=== PATIENT | female | born 1980 | race Caucasian/White ===

== ENCOUNTER 2022-05-04 09:12 | Day surgery (SDC) | payer BC ==
[~2022-05-04 09:12] MED LIST: Lactated Ringers 1,000 ML IV SCH
[2022-05-04] MEDS ORDERED: HYDROmorphone 1 MG/ML Syringe IVPUSH PRN (09:36)
[2022-05-04] MEDS ORDERED: Morphine 2 MG/ML SYRINGE IVPUSH PRN (09:36)
[2022-05-04] MEDS ORDERED: Ondansetron 4 MG/2 ML SDV IVPUSH PRN (09:36)
[2022-05-04] MEDS ORDERED: Naloxone 0.4 MG/ML SDV IVPUSH PRN (09:36)
[2022-05-04] MEDS ORDERED: fentaNYL 50 MCG/ML SDV IVPUSH PRN (09:36)
[2022-05-04] MEDS ORDERED: Albuterol 0.083% 2.5 MG/3 ML Neb Soln NEB PRN (09:36)
[2022-05-04] MEDS ORDERED: Metoclopramide 10 MG/2 ML SDV IVPUSH PRN (09:36)
[2022-05-04] MEDS ORDERED: Ondansetron 4 MG/2 ML SDV ONE (10:08)
[2022-05-04] MEDS ORDERED: Dexamethasone 4 MG/ML 5 ML MDV ONE (10:08)
[2022-05-04] MEDS ORDERED: Propofol 200 MG/20 ML SDV ONE (10:08)
[2022-05-04] MEDS ORDERED: Lidocaine 2% 5 ML SDV ONE (10:08)
[2022-05-04] MEDS ORDERED: fentaNYL 100 MCG/2 ML SDV ONE ×2 (10:09→10:57)
[2022-05-04 10:32] LABS: CARBON DIOXIDE,CO2 27.9 mmol/L (21.0-32.0); POTASSIUM,K 3.9 mmol/L (3.5-5.1)
[2022-05-04] MEDS ORDERED: ePHEDrine 50 MG/ML SDV ONE (10:36)
[2022-05-04] MEDS ORDERED: Ketorolac 30 MG/ML SDV ONE (10:48)
[2022-05-04] MEDS ORDERED: Acetaminophen/oxyCODONE 325-5 MG Tab PO PRN (11:12)
== END 2022-05-04 12:00 | disposition home or self-care (01) ==
LOC: MW.SDS 09:12
PROVIDERS: ATTEND Obstetrics & Gynecology
DX: N84.0 Polyp of corpus uteri (principal); F41.9 Anxiety disorder, unspecified; Z79.899 Other long term (current) drug therapy
CPT/HCPCS: 36415; 58563; 80053; 81025; 85027; J1100; J1885; J2405; J2704; J3010; J7120; 00952; J3490